=== PATIENT | male | born 1995 | race Caucasian/White ===

== ENCOUNTER 2018-04-06 18:19 | Emergency (ER) | payer MEDICAID, OTHER ==
[~2018-04-06] VITALS: Ht 160 cm; Wt 102.1 kg
[2018-04-06 18:26] VITALS: BP 150/98
[2018-04-06 20:12] VITALS: BP 135/92
== END 2018-04-06 20:11 | disposition home or self-care (01) ==
LOC: MED 18:19
DX: H00.024 Hordeolum internum left upper eyelid (principal); R03.0 Elevated blood-pressure reading, without diagnosis of hypertension
CPT/HCPCS: 99283

== ENCOUNTER 2018-10-05 16:24 | Emergency (ER) | payer OTHER ==
[~2018-10-05] VITALS: Ht 162.6 cm; Wt 97.1 kg
[2018-10-05 16:32] VITALS: BP 133/81
--- NOTE | 2018-10-05 16:53 | NUR ---
PATIENT PRESENTS TO ED WITH THE C/O NUMBNESS TO BOTH HANDS FOR 2 WKS. PT STATES HE WAS HERE FOR THE SAME REASON ON September AND WAS UNDER IBUPROFEN W/O IMPROVEMENT. PT NOTED WITH SWOLLEN THE HANDS, NON PITTING. UNABLE TO HOLD THINGS TIGHT. SAYS IT HURTS WHEN HE SQUEEZES HANDS. NUMBNESS GOT WORST ACCORDING TO PT. DENIES ANY ALLERGIES. DENIES ANY MEDICAL HX. HX OF RIGHT HAND FRACTURE. DENIES N/V/D; SKIN IS PINK/WARM/DRY; AAOX4 WITH EVEN AND STEADY GAIT. PT DENIES ANY FEVER, CP, SOB, OR COUGH AT THIS TIME; PATIENT STATES PAIN OF 5/10 AT THIS TIME. PAIN GET WORSE AT NIGHT ACCORDING TO PT. VSS; PATIENT POSITIONED FOR COMFORT; HOB ELEVATED; BEDRAILS UP X2; BED DOWN. ER MD MADE AWARE OF PT STATUS.
[2018-10-05 17:58] VITALS: BP 122/59
--- NOTE | 2018-10-05 17:58 | NUR ---
Patient discharged with v/s stable. Written and verbal after care instructions given and explained. Patient alert, oriented and verbalized understanding of instructions. Ambulatory with steady gait. All questions addressed prior to discharge. ID band removed. Patient advised to follow up with PMD. Rx of TRAMADOL HYDROCHLORIDE given. Patient educated on indication of medication including possible reaction and side effects. Opportunity to ask questions provided and answered.
== END 2018-10-05 17:58 | disposition home or self-care (01) ==
LOC: MED 16:24
DX: G56.02 Carpal tunnel syndrome, left upper limb (principal)
CPT/HCPCS: 99283

== ENCOUNTER 2018-11-14 09:25 | Emergency (ER) | payer OTHER ==
[~2018-11-14] VITALS: Ht 162.6 cm; Wt 98.9 kg
--- NOTE | 2018-11-14 09:34 | NUR ---
PT AMBULATES TO BED 9
[2018-11-14 09:37] VITALS: BP 115/61
--- NOTE | 2018-11-14 09:42 | NUR ---
PATIENT PRESENTS TO ED WITH REQUEST FOR MEDICAL CLEARANCE . PT STATES . DENIES N/V/D; SKIN IS PINK/WARM/DRY; AAOX4 WITH EVEN AND STEADY GAIT; LUNGS CLEAR BL; HR EVEN AND REGULAR; PT DENIES ANY FEVER, CP, SOB, OR COUGH AT THIS TIME; PATIENT STATES PAIN OF 0/10 AT THIS TIME; VSS; PATIENT POSITIONED FOR COMFORT; HOB ELEVATED; BEDRAILS UP X2; BED DOWN. ER MD MADE AWARE OF PT STATUS.
[2018-11-14 12:24] VITALS: BP 115/61
--- NOTE | 2018-11-14 12:25 | NUR ---
Patient discharged with v/s stable. Written and verbal after care instructions given and explained. Patient verbalized understanding. Ambulatory with steady gait. All questions addressed prior to discharge. Advised to follow up with PMD.
== END 2018-11-14 12:25 | disposition home or self-care (01) ==
LOC: MED 09:25
DX: M25.539 Pain in unspecified wrist (principal); F17.210 Nicotine dependence, cigarettes, uncomplicated
CPT/HCPCS: 99283

== ENCOUNTER 2020-03-11 18:28 | Emergency (ER) | payer OTHER ==
[~2020-03-11] VITALS: Ht 162.6 cm; Wt 93.4 kg
--- NOTE | 2020-03-11 18:44 | NUR ---
PT AMBULATED TO ER BED 06
--- NOTE | 2020-03-11 18:46 | NUR ---
24 Y/O MALE FROM HOME C/O BUG BITE TO LT UPPER THIGH SINCE TODAY. PT STATES HE NOTICED IN THE SHOWER WHEN HE FELT PAIN. NOTICABLE REDNESS TO THIGH. STATES HE PUT HOT WATER ON AFFECTED AREA AFTER DRAINING BLOOD FROM BITE. 10/10 BURNING PAIN. DENIES ITCHING. SKIN WARM, DRY, AND REDDEND. VSS MEDHX: DENIES ALLERGIES: NKA
[2020-03-11 18:47] VITALS: BP 100/56
--- NOTE | 2020-03-11 18:50 | NUR ---
DR BRAGG AT BEDSIDE EXAMINING PT
[2020-03-11 18:58] VITALS: BP 100/56
--- NOTE | 2020-03-11 18:59 | NUR ---
Patient discharged with v/s stable. Written and verbal after care instructions given and explained. Patient alert, oriented and verbalized understanding of instructions. Ambulatory with steady gait. All questions addressed prior to discharge. ID band removed. Patient advised to follow up with PMD. Rx of BACTRIM 800MG given. Patient educated on indication of medication including possible reaction and side effects. Opportunity to ask questions provided and answered.
== END 2020-03-11 18:59 | disposition home or self-care (01) ==
LOC: MED 18:28
DX: S70.362A Insect bite (nonvenomous), left thigh, initial encounter (principal); W57.XXXA Bitten or stung by nonvenomous insect and other nonvenomous arthropods, initial encounter; Y93.89 Activity, other specified; Y92.89 Other specified places as the place of occurrence of the external cause; Y99.8 Other external cause status
CPT/HCPCS: 99283

== ENCOUNTER 2023-08-19 20:09 | Emergency (ER) | payer OTHER ==
[~2023-08-19] VITALS: Ht 160 cm; Wt 127.0 kg
[2023-08-19 20:23] VITALS: BP 154/93; PULSE 86; RESP 17; TEMP 98.4; O2SAT 96
[2023-08-19] MEDS ORDERED: oxyCODONE 10 MG TABER PO ONE (22:40)
[2023-08-19] MEDS ORDERED: ACETAMINOPHEN EXTRA STRENGTH 500 MG TAB PO ONE (22:40)
[2023-08-19] MEDS ORDERED: KETOROLAC 30 MG/ML VIAL IM ONE (22:40)
[2023-08-19] MEDS ORDERED: KETOROLAC 15 MG/ML VIAL ONE (22:55)
[2023-08-19] MEDS ORDERED: ACETAMINOPHEN 650 MG/20.3 ML UDC ONE (22:59)
[2023-08-20] MEDS ORDERED: HYDR-5191 PO (00:21)
[2023-08-20 00:51] VITALS: BP 154/93; PULSE 86; RESP 17; TEMP 98.4; O2SAT 96
== END 2023-08-20 00:51 | disposition home or self-care (01) ==
LOC: MED 20:09
DX: S82.152A Displaced fracture of left tibial tuberosity, initial encounter for closed fracture (principal); S60.221A Contusion of right hand, initial encounter; S50.811A Abrasion of right forearm, initial encounter; F07.81 Postconcussional syndrome; V09.9XXA Pedestrian injured in unspecified transport accident, initial encounter; Y93.89 Activity, other specified; Y92.410 Unspecified street and highway as the place of occurrence of the external cause; Y99.8 Other external cause status
CPT/HCPCS: 29505; 70450; 73030; 73060; 73080; 73110; 73130; 73562; 96372; 99285; J1885

== ENCOUNTER 2023-08-31 12:44 | Emergency (ER) | payer OTHER ==
[~2023-08-31] VITALS: Ht 160 cm; Wt 110.0 kg
[~2023-08-31 12:44] MED LIST: HYDR-5191 PO
[2023-08-31 12:53] VITALS: BP 127/72; PULSE 85; RESP 20; TEMP 97.8; O2SAT 96
[2023-08-31] MEDS ORDERED: KETOROLAC 30 MG/ML VIAL IM ONE (13:10)
[2023-08-31] MEDS ORDERED: NAPR-1704 PO (14:19)
[2023-08-31] MEDS ORDERED: ACETAMINOPHEN EXTRA STRENGTH 500 MG TAB PO ONE (14:25)
[2023-08-31 14:54] VITALS: BP 127/72; PULSE 85; RESP 20; TEMP 97.8; O2SAT 96
== END 2023-08-31 14:56 | disposition home or self-care (01) ==
LOC: MED 12:44
DX: S66.811A Strain of other specified muscles, fascia and tendons at wrist and hand level, right hand, initial encounter (principal); X58.XXXA Exposure to other specified factors, initial encounter; Y93.89 Activity, other specified; Y92.89 Other specified places as the place of occurrence of the external cause; Y99.8 Other external cause status
CPT/HCPCS: 73080; 93971; 96372; 99285; J1885; Q0092